=== PATIENT | male | born 1975 | race African-American/Black ===

== ENCOUNTER 2021-11-27 14:22 | Emergency (ER) | payer SELFPAY ==
[~2021-11-27] VITALS: Ht 182.9 cm; Wt 100.0 kg
[2021-11-27 14:28] VITALS: BP 137/92
[2021-11-27 14:30] VITALS: BP 135/87
[2021-11-27 14:46] VITALS: BP 139/89
== END 2021-11-27 15:03 | disposition left against medical advice (07) | DRG 552 ==
LOC: ED 14:22
DX: M54.50 Low back pain, unspecified (principal); F17.210 Nicotine dependence, cigarettes, uncomplicated; Z91.19 Patient's noncompliance with other medical treatment and regimen

== ENCOUNTER 2021-11-29 14:17 | Emergency (ER) | payer SELFPAY ==
[~2021-11-29] VITALS: Ht 182.9 cm; Wt 99.7 kg
[2021-11-29 14:23] VITALS: BP 132/98
[2021-11-29] MEDS ORDERED: VOLTAREN1%GEL TOP (14:49)
[2021-11-29 15:04] VITALS: BP 132/98
== END 2021-11-29 15:05 | disposition home or self-care (01) | DRG 552 ==
LOC: ED 14:17
DX: M54.50 Low back pain, unspecified (principal)

== ENCOUNTER 2022-11-16 12:12 | Emergency (ER) | payer SELFPAY ==
[2022-11-16] VITALS (10 sets, daily range): BP systolic 147–168; BP diastolic 92–108
[~2022-11-16] VITALS: Ht 182.9 cm; Wt 97.5 kg
[~2022-11-16 12:12] MED LIST: VOLTAREN1%GEL TOP
[2022-11-16] MEDS ORDERED: TAM75CAP PO (14:52)
== END 2022-11-16 15:00 | disposition home or self-care (01) | DRG 195 ==
LOC: ED 12:12
DX: J10.1 Influenza due to other identified influenza virus with other respiratory manifestations (principal); F17.200 Nicotine dependence, unspecified, uncomplicated; Z20.822 Contact with and (suspected) exposure to COVID-19